=== PATIENT | female | born 1965 | race Caucasian/White ===

== ENCOUNTER 2016-11-19 23:02 | Emergency (ER) | payer MEDICAID ==
[2016-11-19 23:22] VITALS: BMI 31.6
--- NOTE | 2016-11-19 23:22 | ED PDOC ---
Arrival/HPI - General Time Seen by Provider: 11/19/16 23:07 Historian: Patient - History of Present Illness Narrative History of Present Illness (Text): 11/19/16 23:18 Constanza Garcia is a 51 year old female, whose past medical history includes peptic ulcers, breast CA, partial mastectomy, and hypertension, presents to the emergency department complaining of hematemesis associated with abdominal pain since today morning. No relieving or exacerbating factors. Denies fever, chills , headache, dizziness, diarrhea, blood in stool, urinary symptoms or any other complaints at this time. Time/Duration: 24 hours (today morning. ) Symptom Onset: Gradual Symptom Course: Unchanged Severity Level: Mild Activities at Onset: Rest Past Medical History - Provider Review Nursing Documentation Reviewed: Yes - Infectious Disease Hx of Infectious Diseases: None - Cardiac Hx Hypertension: Yes - Pulmonary Hx Respiratory Disorders: Yes Hx Asthma: Yes - Neurological HX Cerebrovascular Accident: Yes - HEENT Hx HEENT Disorder: No - Renal Hx Renal Disorder: No - Endocrine/Metabolic Hx Endocrine Disorders: No - Hematological/Oncological Hx Blood Transfusions: No Hx Blood Transfusion Reaction: No - Integumentary Hx Dermatological Disorder: No - Musculoskeletal/Rheumatological Hx Back Pain: Yes - Gastrointestinal Hx Gastroesophageal Reflux: Yes Hx Gastrointestinal Ulcer: Yes - Genitourinary/Gynecological Hx Genitourinary Disorders: No - Psychiatric Hx Anxiety: Yes Hx Depression: Yes Hx Substance Use: No - Surgical History Hx Breast Biopsy: Yes (r part mastectomy) Hx Section: Yes Hx Hysterectomy: Yes Hx Mastectomy: Yes (patial and lumpectomy) Other/Comment: Gastric ulcers /cyst back of neck, exlap x 15 yrs - Anesthesia Hx Anesthesia Reactions: No Hx Malignant Hyperthermia: No - Suicidal Assessment Feels Threatened In Home Enviroment: No Family/Social History - Physician Review Nursing Documentation Reviewed: Yes Family/Social History: No Known Family HX Smoking Status: Never Smoked Hx Alcohol Use: No Hx Substance Use: No Allergies/Home Meds Allergies/Adverse Reactions: Allergies Penicillins Allergy (Verified 06/17/16 18:28) RASH Home Medications: Home Meds Medication Instructions Recorded Confirmed Anastrozole [Arimidex 1 mg Tab] 1 mg PO DAILY 05/04/15 06/17/16 Review of Systems - Physician Review All systems were reviewed & negative as marked: Yes - Review of Systems Constitutional: Normal. absent: Fatigue, Fevers Respiratory: Normal. absent: SOB, Cough Cardiovascular: Normal. absent: Chest Pain Gastrointestinal: Abdominal Pain, Nausea, Vomiting, Hematemesis. absent: Diarrhea Musculoskeletal: Normal Skin: Normal Neurological: Normal. absent: Headache, Dizziness Psychiatric: Normal Physical Exam Vital Signs Reviewed: Yes Vital Signs Temp Pulse Resp BP Pulse Ox 11/20/16 01:46 73 16 125/82 99 11/19/16 23:24 97.7 F 89 18 135/92 H 97 Temperature: Afebrile Blood Pressure: Normal Pulse: Regular Respiratory Rate: Normal Appearance: Positive for: Well-Appearing, Non-Toxic, Comfortable Pain Distress: None Mental Status: Positive for: Alert and Oriented X 3 - Systems Exam Head: Present: Atraumatic, Normocephalic Pupils: Present: PERRL Extroacular Muscles: Present: EOMI Conjunctiva: Present: Normal Respiratory/Chest: Present: Clear to Auscultation, Good Air Exchange. No: Respiratory Distress, Accessory Muscle Use Cardiovascular: Present: Regular Rate and Rhythm, Normal S1, S2. No: Murmurs Abdomen: Present: Normal Bowel Sounds. No: Tenderness, Distention, Peritoneal Signs Upper Extremity: Present: Normal Inspection. No: Cyanosis, Edema Lower Extremity: Present: Normal Inspection. No: Edema Neurological: Present: GCS=15, CN II-XII Intact, Speech Normal Skin: Present: Warm, Dry, Normal Color. No: Rashes Psychiatric: Present: Alert, Oriented x 3, Normal Insight, Normal Concentration Medical Decision Making ED Course and Treatment: 11/19/16 23:23 Impression: A 51 year old female who presents to the emergency department complaining of hematemesis associated with abdominal pain since today morning. Plan: -- EKG -- Labs, cardiac enzymes -- Chest X-ray -- Dilaudid -- Morphine -- Protonix -- IV fluids -- Zofran -- Urinalysis -- Reassess and disposition Progress Notes: 11/20/16 02:25 The patient is choosing to leave against medical advice. I have personally explained to the patient that choosing to do so may result in permanent bodily harm or . I have discussed at great length that without further evaluation and monitoring there may be unforeseen circumstances and/or deterioration causing permanent bodily harm or as a result of their choice. The patient is alert, oriented, and shows the mental capacity to make clear decisions regarding the patients health care at this time. The patient continues to wish to leave against medical advice. The patient has been advised that they should return to the emergency room immediately if they change their mind at any time, or if their condition begins to change or worsen in any way. - Lab Interpretations Lab Results: 11/19/16 23:55 11/19/16 23:55 Lab Results 11/19/16 23:55: WBC 9.9 D, RBC 5.00, Hgb 14.0, Hct 41.6, MCV 83.2, MCH 28.0, MCHC 33.7, RDW 14.8 H, Plt Count 362, MPV 9.5, Gran % 68.4 H, Lymph % (Auto) 25.6, [place] % (Auto) 4.8, Eos % (Auto) 0.9 L, Baso % (Auto) 0.3, Gran # 6.77 H, Lymph # 2.5, [place] # 0.5, Eos # 0.1, Baso # 0.03, PT 10.7, INR 0.99, APTT 27.3, Sodium 141, Potassium 4.2, Chloride 102, Carbon Dioxide 29, Anion Gap 14, BUN 20 , Creatinine 0.6, Est GFR ( Amer) > 60, Est GFR (Non-Af Amer) > 60, Random Glucose 97, Calcium 9.7, Total Bilirubin 0.5, AST 24, ALT 18, Alkaline Phosphatase 111, Lactate Dehydrogenase 387, Total Creatine Kinase 72, Troponin I < 0.01, Total Protein 7.9, Albumin 4.2, Globulin 3.7, Albumin/Globulin Ratio 1.1, Amylase 100, Lipase 111 - RAD Interpretation Radiology Orders: 11/19/16 23:30 CHEST PORTABLE [RAD] Stat - Medication Orders Current Medication Orders: Discontinued Medications Hydromorphone HCl (Dilaudid) 2 mg IVP STAT STA Stop: 11/20/16 00:28 Last Admin: 11/20/16 00:35 Dose: 2 MG IVP Administration Document 11/20/16 00:35 RD (Rec: 11/20/16 00:35 RD [id number]) Charges for Administration # of IVP Administrations 1 Sodium Chloride (Sodium Chloride 0.9%) 1,000 mls @ 100 mls/hr IV .Q10H STA Stop: 11/20/16 09:29 Last Admin: 11/20/16 00:04 Dose: 100 MLS/HR eMAR Start Stop Document 11/20/16 00:04 RD (Rec: 11/20/16 00:04 RD [id number]) Intravenous Solution Start Date 11/20/16 Start Time 00:04 Morphine Sulfate (Morphine) 2 mg IVP STAT STA Stop: 11/19/16 23:31 Last Admin: 11/20/16 00:03 Dose: 2 MG MAR Pain Assessment Document 11/20/16 00:03 RD (Rec: 11/20/16 00:03 RD [id number]) Pain Reassessment Is this a pain reassessment? No Sleep Is patient sleeping during reassessment? No Presence of Pain Presence of Pain Yes IVP Administration Document 11/20/16 00:03 RD (Rec: 11/20/16 00:03 RD [id number]) Charges for Administration # of IVP Administrations 1 Ondansetron HCl (Zofran Inj) 4 mg IVP STAT STA Stop: 11/19/16 23:31 Last Admin: 11/20/16 00:03 Dose: 4 MG IVP Administration Document 11/20/16 00:03 RD (Rec: 11/20/16 00:03 RD [id number]) Charges for Administration # of IVP Administrations 1 Pantoprazole Sodium (Protonix Inj) 40 mg IVP STAT STA Stop: 11/19/16 23:34 Last Admin: 11/20/16 00:03 Dose: 40 MG IVP Administration Document 11/20/16 00:03 RD (Rec: 11/20/16 00:03 RD [id number]) Charges for Administration # of IVP Administrations 1 - Scribe Statement The provider has reviewed the documentation as recorded by the Billy Pinto Provider Attestation: All medical record entries made by the Grahamiblynn were at my direction and personally dictated by me. I have reviewed the chart and agree that the record accurately reflects my personal performance of the history, physical exam, medical decision making, and the department course for this patient. I have also personally directed, reviewed, and agree with the discharge instructions and disposition. Disposition/Present on Arrival - Present on Arrival Any Indicators Present on Arrival: No History of DVT/PE: No History of Uncontrolled Diabetes: No Urinary Catheter: No History Surgical Site Infection Following: None - Disposition Have Diagnosis and Disposition been Completed?: Yes Diagnosis: GI bleed Disposition: AGAINST MEDICAL ADVICE Disposition Time: 02:25 Condition: GOOD Prescriptions: Pantoprazole Sodium [Protonix] 40 mg PO DAILY #14 ect
[2016-11-19 23:25] VITALS: TEMP 97.7
[2016-11-19] MEDS ORDERED: Morphine 2 mg/ml ISec IVP STA (23:30)
[2016-11-19] MEDS ORDERED: Sodium Chloride 0.9% 1,000 ML IV STA (23:30)
[2016-11-19] MEDS ORDERED: Pantoprazole 40 MG in Sodium Chloride 0.9% 100 ML IV STA (23:30)
[2016-11-20 00:24] LABS: ADD MANUAL DIFF? NO
[2016-11-20] MEDS ORDERED: HYDROmorphone 2 mg/ml ISec IVP STA (00:27)
[2016-11-20 00:39] LABS: INR 0.99 (0.93-1.08); PARTIAL THROMBOPLASTIN TIME 27.3 Seconds (23.7-30.8)
[2016-11-20 00:46] LABS: ALB/GLOB RATIO 1.1 (1.1-1.8); ALKALINE PHOSPHATASE 111 U/L (38-133); ALT/SGPT 18 U/L (7-56); AMYLASE 100 U/L (35-125); AST/SGOT 24 U/L (15-39); BILIRUBIN,TOTAL 0.5 mg/dL (0.2-1.3); BLOOD UREA NITROGEN 20 mg/dL (7-21); CALCIUM 9.7 mg/dL (8.4-10.5); CARBON DIOXIDE 29 mmol/L (21-33); CHLORIDE 102 mmol/L (98-107); GFR AFRICAN-AMERICAN > 60; GLUCOSE,RANDOM 97 mg/dL (70-110); LIPASE 111 U/L (23-300); POTASSIUM 4.2 mmol/L (3.6-5.0); SODIUM 141 mmol/L (132-148); TOTAL PROTEIN 7.9 g/dL (5.8-8.3)
[2016-11-20 01:00] LABS: BASO # 0.03 K/mm3 (0.0-2.0); BASO % 0.3 % (0.0-3.0); EOS # 0.1 (0.0-0.7); EOS % 0.9 % (1.5-5.0); GRAN # 6.77 (1.4-6.5); GRAN % 68.4 % (50.0-68.0); HEMATOCRIT 41.6 % (36.0-48.0); LYMPH # 2.5 (1.2-3.4); LYMPH % 25.6 % (22.0-35.0); MEAN CELL VOLUME 83.2 fL (80.0-105.0); MEAN CORPUSCULAR HGB CONC 33.7 g/dl (31.0-37.0); MEAN PLATELET VOLUME 9.5 fl (7.0-11.0); MONO # 0.5 (0.1-0.6); MONO % 4.8 % (1.0-6.0); PLATELET COUNT 362 10^3/uL (120.0-450.0); RED CELL DISTRIBUTION WIDTH 14.8 % (11.5-14.5); WHITE BLOOD COUNT 9.9 10^3/ul (4.5-11.0)
[2016-11-20 01:09] LABS: TROPONIN I < 0.01 ng/mL
[2016-11-20 01:47] VITALS: BP 125/82; PULSE 73; RESP 16; O2SAT 99
--- NOTE | 2016-11-20 08:39 | RAD ---
HISTORY: abd pain COMPARISON: 06/17/2016 FINDINGS: LUNGS: No active pulmonary disease. PLEURA: No significant pleural effusion identified, no pneumothorax apparent. CARDIOVASCULAR: Normal. OSSEOUS STRUCTURES: No significant abnormalities. VISUALIZED UPPER ABDOMEN: Normal. OTHER FINDINGS: None. IMPRESSION: No active disease.
== END 2016-11-20 02:34 | disposition home or self-care (01) ==
LOC: ED 23:02
DX: K92.2 Gastrointestinal hemorrhage, unspecified (principal); I10 Essential (primary) hypertension
CPT/HCPCS: 71010; 80053; 82150; 82550; 83615; 83690; 84484; 85025; 85610; 85730; 96374; 96375; 99285; C9113; J1170; J2270; J2405; J7040

== ENCOUNTER 2016-11-27 00:13 | Observation (INO) | payer MEDICAID ==
--- NOTE | 2016-11-27 01:08 | ED PDOC ---
Arrival/HPI - General Chief Complaint: GI Problem Time Seen by Provider: 11/27/16 00:58 Historian: Patient - History of Present Illness Narrative History of Present Illness (Text): 11/27/16 01:08 Constanza Garcia is a 51 year old female, with a history of peptic ulcers, breast CA, partial mastectomy and hypertension, presents to the emergency department complaining of epigastric pain associated with 2 episodes of hematemisis for past 2 days. Patient was evaluated for similar symptoms on 11/19/16 when patient signed out against medical advice. Denies any relieving or exacerbating factors. Denies fever, chills, headache, dizziness, chest pain, shortness of breath, nausea, diarrhea, urinary symptoms or any other complaints at this time. Time/Duration: < week (2 days ) Symptom Onset: Gradual Symptom Course: Unchanged Severity Level: Mild Activities at Onset: Light Context: Home Past Medical History - Provider Review Nursing Documentation Reviewed: Yes - Infectious Disease Hx of Infectious Diseases: None - Cardiac Hx Hypertension: Yes - Pulmonary Hx Respiratory Disorders: Yes Hx Asthma: Yes - Neurological HX Cerebrovascular Accident: Yes - HEENT Hx HEENT Disorder: No - Renal Hx Renal Disorder: No - Endocrine/Metabolic Hx Endocrine Disorders: No - Hematological/Oncological Hx Blood Transfusions: No Hx Blood Transfusion Reaction: No - Integumentary Hx Dermatological Disorder: No - Musculoskeletal/Rheumatological Hx Back Pain: Yes - Gastrointestinal Hx Gastroesophageal Reflux: Yes Hx Gastrointestinal Ulcer: Yes - Genitourinary/Gynecological Hx Genitourinary Disorders: No - Psychiatric Hx Anxiety: Yes Hx Depression: Yes Hx Substance Use: No - Surgical History Hx Breast Biopsy: Yes (r part mastectomy) Hx Section: Yes Hx Hysterectomy: Yes Hx Mastectomy: Yes (patial and lumpectomy) Other/Comment: Gastric ulcers /cyst back of neck, exlap x 15 yrs - Anesthesia Hx Anesthesia: Yes Hx Anesthesia Reactions: No Hx Malignant Hyperthermia: No - Suicidal Assessment Feels Threatened In Home Enviroment: No Family/Social History - Physician Review Nursing Documentation Reviewed: Yes Family/Social History: No Known Family HX Smoking Status: Never Smoked Hx Alcohol Use: No Hx Substance Use: No Allergies/Home Meds Allergies/Adverse Reactions: Allergies Penicillins Allergy (Verified 11/27/16 03:41) RASH Home Medications: Home Meds Medication Instructions Recorded Confirmed Anastrozole [Arimidex 1 mg Tab] 1 mg PO DAILY 05/04/15 06/17/16 Review of Systems - Physician Review All systems were reviewed & negative as marked: Yes - Review of Systems Constitutional: Normal. absent: Fatigue, Fevers Respiratory: Normal. absent: SOB, Cough, Sputum Cardiovascular: Normal. absent: Chest Pain Gastrointestinal: Abdominal Pain, Hematemesis. absent: Diarrhea, Nausea Genitourinary Female: Normal Neurological: Normal. absent: Headache, Dizziness Psychiatric: Normal Physical Exam Vital Signs Reviewed: Yes Vital Signs Temp Pulse Resp BP Pulse Ox 11/27/16 03:54 71 18 129/63 98 11/27/16 00:32 98.3 F 77 18 129/89 97 Temperature: Afebrile Blood Pressure: Normal Pulse: Regular Respiratory Rate: Normal Appearance: Positive for: Well-Appearing, Non-Toxic, Comfortable Pain Distress: None Mental Status: Positive for: Alert and Oriented X 3 - Systems Exam Head: Present: Atraumatic, Normocephalic Pupils: Present: PERRL Extroacular Muscles: Present: EOMI Conjunctiva: Present: Normal Respiratory/Chest: Present: Clear to Auscultation, Good Air Exchange. No: Respiratory Distress, Accessory Muscle Use Cardiovascular: Present: Regular Rate and Rhythm, Normal S1, S2. No: Murmurs Abdomen: Present: Normal Bowel Sounds. No: Tenderness, Distention, Peritoneal Signs Upper Extremity: Present: Normal Inspection. No: Cyanosis, Edema Lower Extremity: Present: Normal Inspection. No: Edema Neurological: Present: GCS=15, CN II-XII Intact, Speech Normal Skin: Present: Warm, Dry, Normal Color. No: Rashes Psychiatric: Present: Alert, Oriented x 3, Normal Insight, Normal Concentration Medical Decision Making ED Course and Treatment: 11/27/16 01:15 Impression: A 51 year old female who presents to the emergency department complaining of abdominal pain associated with 2 episodes of hematemesis for 2 days. Plan: -- EKG -- Labs -- Chest X-ray -- Protonix -- IV fluids -- Zofran -- Reassess and disposition Progress Notes: 11/27/16 03:04 Chest X-ray reviewed by me: No acute processes. 11/27/16 03:[address] Watters who is aware and agrees with the plan admit patient to hospital for hematemesis. Accepts patient under hospitalist service. 11/27/16 04:30 EKG interpreted by me: NSR @ 70 bpm. Normal axis. Normal interval. - Lab Interpretations Lab Results: 11/27/16 02:05 11/27/16 02:05 Lab Results 11/27/16 02:05: WBC 8.2, RBC 4.93, Hgb 13.8, Hct 41.0, MCV 83.2, MCH 28.0, MCHC 33.7, RDW 14.8 H, Plt Count 362, MPV 9.7, PT 10.6, INR 0.98, APTT 25.0, Sodium 139, Potassium 5.1 H, Chloride 104, Carbon Dioxide 26, Anion Gap 14, BUN 15, Creatinine 0.5, Est GFR ( Amer) > 60, Est GFR (Non-Af Amer) > 60, Random Glucose 97, Calcium 9.8, Total Bilirubin 0.6, AST 44 H, ALT 31, Alkaline Phosphatase 131, Total Protein 8.1, Albumin 4.1, Globulin 3.9, Albumin/Globulin Ratio 1.1, Lipase 65, Blood Type A POSITIVE, Antibody Screen Negative, BBK History Checked Patient has bt - RAD Interpretation Radiology Orders: 11/27/16 01:08 CHEST PORTABLE [RAD] Stat - Medication Orders Current Medication Orders: Anastrozole (Arimidex 1 Mg Tab) 1 mg PO DAILY MAIA Sodium Chloride (Sodium Chloride 0.9%) 1,000 mls @ 100 mls/hr IV .Q10H MAIA Morphine Sulfate (Morphine) 2 mg IVP Q4H PRN PRN Reason: Pain, severe (8-10) Ondansetron HCl (Zofran Inj) 4 mg IVP Q4H PRN PRN Reason: Nausea/Vomiting Pantoprazole Sodium (Protonix Inj) 40 mg IVP DAILY MAIA Discontinued Medications Sodium Chloride (Sodium Chloride 0.9%) 1,000 mls @ 999 mls/hr IV .Q1H1M STA Stop: 11/27/16 02:09 Last Admin: 11/27/16 03:36 Dose: 999 MLS/HR eMAR Start Stop Document 11/27/16 03:36 TADEO (Rec: 11/27/16 03:36 TADEO [facility] [id number]) Intravenous Solution Start Date 11/27/16 Start Time 02:10 End Date 11/27/16 End time 03:30 Total Infusion Time 80 Morphine Sulfate (Morphine) 2 mg IVP STAT STA Stop: 11/27/16 02:42 Last Admin: 11/27/16 02:54 Dose: 2 MG MAR Pain Assessment Document 11/27/16 02:54 [email or web address] (Rec: 11/27/16 02:55 [id number]) Pain Reassessment Is this a pain reassessment? No Sleep Is patient sleeping during reassessment? No Presence of Pain Presence of Pain Yes Pain Scale Used Pain Scale Used Numeric Location Pain Location Body Site Abdomen Description Description Constant Intensity of Pain at present 8 Pain Behavior Facial Grimacing Aggravating Factors Changing Position Alleviating Factors/Management Position Change Techniques Alleviating Factors Medication IVP Administration Document 11/27/16 02:54 [email or web address] (Rec: 11/27/16 02:[id number]) Charges for Administration # of IVP Administrations 1 Ondansetron HCl (Zofran Inj) 4 mg IVP ONCE ONE Stop: 11/27/16 01:10 Last Admin: 11/27/16 02:08 Dose: 4 MG IVP Administration Document 11/27/16 02:08 [email or web address] (Rec: 11/27/16 02:08 [id number]) Charges for Administration # of IVP Administrations 1 Pantoprazole Sodium (Protonix Inj) 40 mg IVP ONCE STA Stop: 11/27/16 01:10 Last Admin: 11/27/16 02:08 Dose: 40 MG IVP Administration Document 11/27/16 02:08 [email or web address] (Rec: 11/27/16 02:[id number]) Charges for Administration # of IVP Administrations 1 - Scribe Statement The provider has reviewed the documentation as recorded by the iBlly Pinto Provider Attestation: All medical record entries made by the Billy were at my direction and personally dictated by me. I have reviewed the chart and agree that the record accurately reflects my personal performance of the history, physical exam, medical decision making, and the department course for this patient. I have also personally directed, reviewed, and agree with the discharge instructions and disposition. Disposition/Present on Arrival - Present on Arrival Any Indicators Present on Arrival: No History of DVT/PE: No History of Uncontrolled Diabetes: No Urinary Catheter: No History of Decub. Ulcer: No History Surgical Site Infection Following: None - Disposition Have Diagnosis and Disposition been Completed?: Yes Diagnosis: Hematemesis, Epigastric abdominal pain Disposition: HOSPITALIZED Disposition Time: 03:32 Patient Plan: Observation Patient Problems: Current Active Problems Problem Status Diagnosed Epigastric abdominal pain Acute Hematemesis Acute Condition: GOOD
[2016-11-27] MEDS: Sodium Chloride 0.9% 1,000 ML IV STA ×2 (02:08→03:36)
[2016-11-27 02:22] LABS: MEAN CELL VOLUME 83.2 fL (80.0-105.0); MEAN CORPUSCULAR HGB CONC 33.7 g/dl (31.0-37.0); MEAN PLATELET VOLUME 9.7 fl (7.0-11.0); RED CELL DISTRIBUTION WIDTH 14.8 % (11.5-14.5); WHITE BLOOD COUNT 8.2 10^3/ul (4.5-11.0)
[2016-11-27 02:31] LABS: ALB/GLOB RATIO 1.1 (1.1-1.8); ALKALINE PHOSPHATASE 131 U/L (38-133); ALT/SGPT 31 U/L (7-56); AST/SGOT 44 U/L (15-39); BILIRUBIN,TOTAL 0.6 mg/dL (0.2-1.3); BLOOD UREA NITROGEN 15 mg/dL (7-21); CALCIUM 9.8 mg/dL (8.4-10.5); CARBON DIOXIDE 26 mmol/L (21-33); CHLORIDE 104 mmol/L (95-110); GFR AFRICAN-AMERICAN > 60; GLUCOSE,RANDOM 97 mg/dL (70-110); LIPASE 65 U/L (23-300); POTASSIUM 5.1 mmol/L (3.6-5.0); SODIUM 139 mmol/L (132-148); TOTAL PROTEIN 8.1 g/dL (5.8-8.3)
[2016-11-27 02:38] LABS: INR 0.98 (0.93-1.08)
[2016-11-27] MEDS ORDERED: Morphine 2 mg/ml ISec IVP STA (02:41)
--- NOTE | 2016-11-27 04:04 | CP.PCM.HP ---
<Sandy Love - Last Filed: 11/27/16 03:50> History of Present Illness - History of Present Illness History of Present Illness: This is a 51Y F with PMH of peptic ulcer disease, breast cancer s/p lumpectomy/ chemo/radiation came to the ED with abdominal pain x 2 days. She came into the ED 2 days ago for similar pain, but left AMA. She reports having hematemesis x 2 today. The emesis was described as dark in color. She has not thrown up since then. The patient reports having epigastric pain that is worse with food. She says Zofran makes it better. The pain does not radiate. Patient denies CP, SOB, diarrhea, numbness/tingling, vision changes, dysuria or hematuria. PMH: PUD, breast cancer s/p lumpectomy PSH: L breast Lumpectomy, hysterectomy Home meds: Arimidex, Protonix ALL: Penicillin- said she had allergy as a child SH: Lives with son. Denies EtOH, drug or tobacco use FH: Denies PMD: Dr. Osorio Present on Admission - Present on Admission Any Indicators Present on Admission: No Review of Systems - Review of Systems Review of Systems: As per HPI Past Patient History - Infectious Disease Hx of Infectious Diseases: None - Past Social History Smoking Status: Never Smoked - CARDIAC Hx Hypertension: Yes - PULMONARY Hx Respiratory Disorders: Yes Hx Asthma: Yes - NEUROLOGICAL HX Cerebrovascular Accident: Yes - HEENT Hx HEENT Problems: No - RENAL Hx Chronic Kidney Disease: No - ENDOCRINE/METABOLIC Hx Endocrine Disorders: No - HEMATOLOGICAL/ONCOLOGICAL Hx Blood Transfusions: No Hx Blood Transfusion Reaction: No - INTEGUMENTARY Hx Dermatological Problems: No - MUSCULOSKELETAL/RHEUMATOLOGICAL Hx Back Pain: Yes - GASTROINTESTINAL Hx Gastroesophageal Reflux: Yes - GENITOURINARY/GYNECOLOGICAL Hx Genitourinary Disorders: No - PSYCHIATRIC Hx Anxiety: Yes Hx Depression: Yes Hx Substance Use: No - SURGICAL HISTORY Hx Breast Biopsy: Yes (r part mastectomy) Hx Section: Yes Hx Hysterectomy: Yes Hx Mastectomy: Yes (patial and lumpectomy) Other/Comment: Gastric ulcers /cyst back of neck, exlap x 15 yrs - ANESTHESIA Hx Anesthesia: Yes Hx Anesthesia Reactions: No Hx Malignant Hyperthermia: No Meds Allergies/Adverse Reactions: Allergies Allergy/AdvReac Type Severity Reaction Status Date / Time Penicillins Allergy RASH Verified 11/27/16 03:41 Physical Exam - Constitutional Appears: No Acute Distress - Head Exam Head Exam: ATRAUMATIC, NORMAL INSPECTION, NORMOCEPHALIC - Eye Exam Eye Exam: Normal appearance, PERRL Pupil Exam: NORMAL ACCOMODATION, PERRL - ENT Exam ENT Exam: Mucous Membranes Moist - Respiratory Exam Respiratory Exam: Clear to Auscultation Bilateral, NORMAL BREATHING PATTERN. absent: Rales, Rhonchi, Wheezes - Cardiovascular Exam Cardiovascular Exam: REGULAR RHYTHM, +S1, +S2. absent: Gallop, Rubs, Systolic Murmur - GI/Abdominal Exam GI & Abdominal Exam: Normal Bowel Sounds, Soft, Tenderness (epigastric tenderness ). absent: Guarding, Rebound, Rigid Additional comments: midline scar - Extremities Exam Extremities exam: Positive for: normal inspection. Negative for: calf tenderness, pedal edema - Neurological Exam Neurological exam: Alert, CN II-XII Intact, Oriented x3 - Psychiatric Exam Psychiatric exam: Normal Affect, Normal Mood - Skin Skin Exam: Dry, Intact, Normal Color, Warm Results - Vital Signs Recent Vital Signs: Last Vital Signs Temp 98.3 F 11/27/16 00:32 Pulse 77 11/27/16 00:32 Resp 18 11/27/16 00:32 BP 129/89 11/27/16 00:32 Pulse Ox 97 11/27/16 00:32 - Labs Result Diagrams: 11/27/16 02:05 11/27/16 02:05 Assessment & Plan - Assessment and Plan (Free Text) Assessment: This is a 51Y F with PMH of peptic ulcer disease and breast cancer s/p lumpectomy admitted for epigastric pain with nausea and vomiting. Plan: 1. Epigastric pain with hematemesis - DDx: Gastritis r/o cholecystitis - afebrile, no leukocytosis, H/H stable - NPO - NS@100 - Protonix IV, Zofran prn nausea, Morphine prn pain - Abdominal U/S pending 2. Hx of breast cancer - Continue Arimidex GI ppx: Protonix DVT ppx: SCDs Case seen, reviewed and discussed with attending Joe Love PGY1 - Date & Time Date: 11/27/16 Time: 04:10 <Quinn Watters MD - Last Filed: 12/03/16 09:12> Results - Vital Signs Recent Vital Signs: Last Vital Signs Temp 97.9 F 11/28/16 06:00 Pulse 72 11/28/16 06:00 Resp 20 11/28/16 06:00 BP 122/84 11/28/16 06:00 Pulse Ox 96 11/28/16 06:00 - Labs Result Diagrams: 11/28/16 07:00 11/28/16 07:00 Attending/Attestation - Attestation I have personally seen and examined this patient.: Yes I have fully participated in the care of the patient.: Yes I have reviewed all pertinent clinical information: Yes Notes (Text): 12/03/16 09:12
[2016-11-27] MEDS: Sodium Chloride 0.9% 1,000 ML IV SCH (05:03)
[2016-11-27 05:40] VITALS: BMI 34.1
[2016-11-27] MEDS: Morphine 2 mg/ml ISec IVP PRN ×3 (06:27→14:17)
--- NOTE | 2016-11-27 09:24 | RAD ---
HISTORY: Abdominal pain COMPARISON: 11/20/2016 FINDINGS: LUNGS: The lungs are well inflated and clear. PLEURA: No significant pleural effusion identified, no pneumothorax apparent. CARDIOVASCULAR: Normal. OSSEOUS STRUCTURES: No significant abnormalities. VISUALIZED UPPER ABDOMEN: Normal. OTHER FINDINGS: None. IMPRESSION: No active pulmonary disease.
--- NOTE | 2016-11-27 09:33 | CARD ---
APPROVED REPORT EKG Measurement Heart [id number] <Conclusion> Normal sinus rhythm No change except lower voltage QRS in Lead 1
--- NOTE | 2016-11-27 10:45 | US ---
HISTORY: r/o gallstones COMPARISON: None. TECHNIQUE: Sonographic evaluation of the right upper quadrant of the abdomen. FINDINGS: LIVER: Measures 18.1 cm in length. There is diffuse increased echogenicity of the liver parenchyma. No mass. No intrahepatic bile duct dilatation. GALLBLADDER: Unremarkable. No gallstones. COMMON BILE DUCT: Measures 5.8 mm. No stones. No dilatation. PANCREAS: Unremarkable as visualized. No mass. No ductal dilatation. RIGHT KIDNEY: Measures 12.6 cm in length. Normal echogenicity. No calculus, mass, or hydronephrosis. AORTA: No aneurysmal dilatation. IVC: Unremarkable. OTHER FINDINGS: None . IMPRESSION: Mild hepatomegaly and hepatic steatosis. No cholelithiasis or biliary dilatation.
--- NOTE | 2016-11-27 11:50 | CP.PCM.CON ---
<Peggy Douglass - Last Filed: 11/27/16 15:33> History of Present Illness - History of Present Illness History of Present Illness: Gastroenterology Fellow/PGY4 Consult Note 51 year old female with history of breast cancer s/p lumpectomy and chemoradiation, PUD, endorsed to be complicated by perforated viscous leading to Miri fundoplication presenting with abdominal pain and vomiting blood. Patient describes epigastric pain with associated two episodes of coffee ground emesis for the last two days . She notes similar presentation to ER on 11/19 but left AMA. Denies recent antibiotics, recent travel, sick contacts, NSAID use, diarrhea, constipation, melena, hematochezia, or unintentional weight loss. Similar episode last year May presenting with abdominal pain and hematemesis. EGD 06/18/16 with LA Grade C esophagitis, gastritis, and H pylori positive. Patient endorsed compliance to PPI therapy and denies treatment of H pylori. Family-denies esophageal cancer, stomach cancer, colon cancer Social- quit tobacco and alcohol use over 10 years ago, denies illicit drug use [id number] for perforated gastric viscous, left breast lumpectomy, hysterectomy Review of Systems - Review of Systems Review of Systems: A 12-point review of systems negative except for as above Past Patient History - Infectious Disease Hx of Infectious Diseases: None - Past Social History Smoking Status: Never Smoked - CARDIAC Hx Hypertension: Yes - PULMONARY Hx Respiratory Disorders: Yes Hx Asthma: Yes - NEUROLOGICAL HX Cerebrovascular Accident: Yes - HEENT Hx HEENT Problems: No - RENAL Hx Chronic Kidney Disease: No - ENDOCRINE/METABOLIC Hx Endocrine Disorders: No - HEMATOLOGICAL/ONCOLOGICAL Hx Blood Transfusions: No Hx Blood Transfusion Reaction: No - INTEGUMENTARY Hx Dermatological Problems: No - MUSCULOSKELETAL/RHEUMATOLOGICAL Hx Back Pain: Yes - GASTROINTESTINAL Hx Gastroesophageal Reflux: Yes - GENITOURINARY/GYNECOLOGICAL Hx Genitourinary Disorders: No - PSYCHIATRIC Hx Anxiety: Yes Hx Depression: Yes Hx Substance Use: No - SURGICAL HISTORY Hx Breast Biopsy: Yes (r part mastectomy) Hx Section: Yes Hx Hysterectomy: Yes Hx Mastectomy: Yes (patial and lumpectomy) Other/Comment: Gastric ulcers /cyst back of neck, exlap x 15 yrs - ANESTHESIA Hx Anesthesia: Yes Hx Anesthesia Reactions: No Hx Malignant Hyperthermia: No Meds Allergies/Adverse Reactions: Allergies Allergy/AdvReac Type Severity Reaction Status Date / Time Penicillins Allergy RASH Verified 11/27/16 03:41 - Medications Medications: Current Medications Anastrozole (Arimidex 1 Mg Tab) 1 mg PO DAILY [facility] Last Admin: 11/27/16 09:43 Dose: 1 mg Sodium Chloride (Sodium Chloride 0.9%) 1,000 mls @ 100 mls/hr IV .Q10H [facility] Last Admin: 11/27/16 05:03 Dose: 100 mls/hr Morphine Sulfate (Morphine) 2 mg IVP Q4H PRN PRN Reason: Pain, severe (8-10) Last Admin: 11/27/16 10:31 Dose: 2 mg Ondansetron HCl (Zofran Inj) 4 mg IVP Q4H PRN PRN Reason: Nausea/Vomiting Pantoprazole Sodium (Protonix Inj) 40 mg IVP DAILY [facility] Last Admin: 11/27/16 09:46 Dose: 40 mg Physical Exam - Constitutional Appears: Non-toxic, No Acute Distress - Head Exam Head Exam: ATRAUMATIC, NORMOCEPHALIC - Eye Exam Eye Exam: EOMI, PERRL Pupil Exam: PERRL - ENT Exam ENT Exam: Mucous Membranes Moist, Normal Oropharynx - Neck Exam Neck exam: Positive for: Full Rom, Normal Inspection - Respiratory Exam Respiratory Exam: Clear to Auscultation Bilateral. absent: Rales, Rhonchi, Wheezes - Cardiovascular Exam Cardiovascular Exam: RRR, +S1, +S2. absent: Gallop, Rubs - GI/Abdominal Exam GI & Abdominal Exam: Normal Bowel Sounds, Soft, Tenderness. absent: Distended, Firm, Guarding, Organomegaly, Rebound, Rigid Additional comments: epigastric tenderness to palpation - Extremities Exam Extremities exam: Positive for: full ROM. Negative for: pedal edema - Neurological Exam Neurological exam: Alert - Psychiatric Exam Psychiatric exam: Normal Affect, Normal Mood - Skin Skin Exam: Dry, Intact, Normal Color, Warm Results - Vital Signs Recent Vital Signs: Last Vital Signs Temp 98.2 F 11/27/16 06:00 Pulse 70 11/27/16 06:00 Resp 18 11/27/16 06:00 BP 130/85 11/27/16 06:00 Pulse Ox 99 11/27/16 06:00 - Labs Result Diagrams: 11/27/16 02:05 11/27/16 02:05 Assessment & Plan - Assessment and Plan (Free Text) Assessment: 51 year old female with history of breast cancer s/p lumpectomy and chemoradiation, PUD, endorsed to be complicated by perforated viscous leading to Miri fundoplication presenting with epigastric pain and hematemesis. Ultrasound without acute findings. EGD 06/18/16 with LA Grade C esophagitis, gastritis, and H pylori positive. Plan: >continue PPI daily >no signs of active GI blood loss >H/H stable >trial clear liquids, advance as tolerated >provide H pylori treatment on discharge with previous H pylori on EGD 05/2016 >outpatient follow up with GI physician for surveillance of esophagitis and gastritis 4-8 weeks after H pylori treatment >would benefit from follow up with surgeon with history of fundoplication over ten years ago <Moises Mesa - Last Filed: 11/27/16 18:05> Meds - Medications Medications: Current Medications Anastrozole (Arimidex 1 Mg Tab) 1 mg PO DAILY [facility] Last Admin: 11/27/16 09:43 Dose: 1 mg Hydromorphone HCl (Dilaudid) 0.5 mg IVP Q6H PRN PRN Reason: Pain, severe (8-10) Last Admin: 11/27/16 16:13 Dose: 0.5 mg Sodium Chloride (Sodium Chloride 0.9%) 1,000 mls @ 100 mls/hr IV .Q10H [facility] Last Admin: 11/27/16 05:03 Dose: 100 mls/hr Ondansetron HCl (Zofran Inj) 4 mg IVP Q4H PRN PRN Reason: Nausea/Vomiting Pantoprazole Sodium (Protonix Inj) 40 mg IVP DAILY [facility] Last Admin: 11/27/16 09:46 Dose: 40 mg Results - Vital Signs Recent Vital Signs: Last Vital Signs Temp 97.8 F 11/27/16 16:00 Pulse 75 11/27/16 16:00 Resp 19 11/27/16 16:00 BP 120/68 11/27/16 16:00 Pulse Ox 100 11/27/16 16:00 - Labs Result Diagrams: 11/27/16 02:05 11/27/16 02:05 Attending/Attestation - Attestation I have personally seen and examined this patient.: Yes I have fully participated in the care of the patient.: Yes I have reviewed all pertinent clinical information: Yes Notes (Text): 11/27/16 18:03 51 year old female with history of breast cancer s/p lumpectomy, chemoradiation , GERD, h/o miri fundoplication admitted with hematemesis and abdominal pain. 1. Hematemesis 2. H. pylori gastritis 3. Erosive esophagitis Plan: -hematemesis is mild, self limited, with normal hemoglobin and hemodynamics -recommend PPI daily -recommend outpatient therapy for H .pylori on discharge with Amoxicillin 1 g BID, clarithromycin 500 mg bid, and protonix 40 mg po bid x 2 weeks beginngon on discharge -recommend confirmation of h.pylori eradication in 2-3 months -diet as tolerated -will sign off
--- NOTE | 2016-11-27 13:28 | US ---
HISTORY: Leg pain and swelling. Evaluate for DVT PHYSICIAN(S): Juan Diego Hdz MD. TECHNIQUE: Duplex sonography and color-flow Doppler with graded compression were used to evaluate the deep venous systems of both lower extremities. FINDINGS: The visualized deep venous systems of both lower extremities are sonographically normal and compressible. Normal wave forms and augmentation are seen. There is no sonographic evidence for deep venous thrombosis in the visualized segments of both lower extremities. IMPRESSION: No sonographic evidence for deep venous thrombosis in the visualized segments of both lower extremities.
--- NOTE | 2016-11-27 15:59 | CP.PCM.PN ---
<Angy Mendiola - Last Filed: 11/27/16 16:03> Subjective - Date & Time of Evaluation Date of Evaluation: 11/27/16 Time of Evaluation: 07:50 - Subjective Subjective: Pt seen and evaluated at the bedside. Pt denies N/V. C/o diffuse abdominal pain. Reports BM last night. Afebrile. Objective - Vital Signs/Intake and Output Vital Signs (last 24 hours): Temp Pulse Resp BP Pulse Ox 98.2 F 70 18 130/85 99 11/27/16 06:00 11/27/16 06:00 11/27/16 06:00 11/27/16 06:00 11/27/16 06:00 - Medications Medications: Current Medications Anastrozole (Arimidex 1 Mg Tab) 1 mg PO DAILY [facility] Last Admin: 11/27/16 09:43 Dose: 1 mg Hydromorphone HCl (Dilaudid) 0.5 mg IVP Q6H PRN PRN Reason: Pain, severe (8-10) Sodium Chloride (Sodium Chloride 0.9%) 1,000 mls @ 100 mls/hr IV .Q10H [facility] Last Admin: 11/27/16 05:03 Dose: 100 mls/hr Ondansetron HCl (Zofran Inj) 4 mg IVP Q4H PRN PRN Reason: Nausea/Vomiting Pantoprazole Sodium (Protonix Inj) 40 mg IVP DAILY [facility] Last Admin: 11/27/16 09:46 Dose: 40 mg - Labs Labs: PT 10.6 Seconds (9.9-11.8) 11/27/16 02:05 INR 0.98 (0.93-1.08) 11/27/16 02:05 APTT 25.0 Seconds (23.7-30.8) 11/27/16 02:05 - Constitutional Appears: Non-toxic - Head Exam Head Exam: ATRAUMATIC, NORMOCEPHALIC - Eye Exam Eye Exam: EOMI, Normal appearance Pupil Exam: NORMAL ACCOMODATION, PERRL - ENT Exam ENT Exam: Mucous Membranes Moist, Normal Exam - Respiratory Exam Respiratory Exam: Clear to Ausculation Bilateral, NORMAL BREATHING PATTERN - Cardiovascular Exam Cardiovascular Exam: +S1, +S2. absent: Bradycardia - GI/Abdominal Exam GI & Abdominal Exam: Soft, Tenderness - Exam External exam: absent: Ecchymosis, Erythema - Extremities Exam Extremities Exam: Tenderness. absent: Pedal Edema - Neurological Exam Neurological Exam: Alert, Awake - Skin Skin Exam: Intact, Normal Color Assessment and Plan - Assessment and Plan (Free Text) Plan: This is a 51Y F with PMH of peptic ulcer disease and breast cancer s/p lumpectomy admitted for epigastric pain with nausea and vomiting. 1. Epigastric pain with hematemesis - Gastritis - afebrile, no leukocytosis, H/H stable - CLD trial - NS@100 - Protonix IV, Zofran prn nausea, dilaudid prn pain - Abdominal U/S negative for cholecystitis -GI consult Dr. Garrison appreciated, recs for outpt EGD and tx for +h.Pylori upon d/c will be followed 2. Hx of breast cancer - Continue Arimidex 3. B/L LE tenderness B/L duplex without positive findings GI ppx: Protonix DVT ppx: SCDs Case seen, reviewed and discussed with attending Joe Mendiola PGY1 <Alexandria Bucio A - Last Filed: 11/27/16 16:13> Objective - Vital Signs/Intake and Output Vital Signs (last 24 hours): Temp Pulse Resp BP Pulse Ox 98.2 F 70 18 130/85 99 11/27/16 06:00 11/27/16 06:00 11/27/16 06:00 11/27/16 06:00 11/27/16 06:00 - Medications Medications: Current Medications Anastrozole (Arimidex 1 Mg Tab) 1 mg PO DAILY [facility] Last Admin: 11/27/16 09:43 Dose: 1 mg Hydromorphone HCl (Dilaudid) 0.5 mg IVP Q6H PRN PRN Reason: Pain, severe (8-10) Sodium Chloride (Sodium Chloride 0.9%) 1,000 mls @ 100 mls/hr IV .Q10H [facility] Last Admin: 11/27/16 05:03 Dose: 100 mls/hr Ondansetron HCl (Zofran Inj) 4 mg IVP Q4H PRN PRN Reason: Nausea/Vomiting Pantoprazole Sodium (Protonix Inj) 40 mg IVP DAILY [facility] Last Admin: 11/27/16 09:46 Dose: 40 mg - Labs Labs: PT 10.6 Seconds (9.9-11.8) 11/27/16 02:05 INR 0.98 (0.93-1.08) 11/27/16 02:05 APTT 25.0 Seconds (23.7-30.8) 11/27/16 02:05 Attending/Attestation - Attestation I have personally seen and examined this patient.: Yes I have fully participated in the care of the patient.: Yes I have reviewed all pertinent clinical information, including history, physical exam and plan: Yes Notes (Text): 11/27/16 16:08 51 year old female with past medical history of peptic ulcer disease and breast cancer who presented with complaint of epigastric pain with nausea and vomiting. Her last EGD was in 06/03 which showed esophagitis, gastritis and +H pylori. She however did not follow up with GI for repeat EGD nor was on H pylori treatment. US abdomen is negative for any acute findings. H/H is stable. She is currently NPO with iv fluids, analgesics and antiemetics. GI evaluation was appreciated. Will advance to clear liquids as tolerated. Will need H pylori treatment on discharge as well as repeat EGD with GI follow up. She may also need to follow up with her surgeon as she has history of fundoplication in the past. Alexandria Bucio MD Hospitalist.
[2016-11-27] MEDS: HYDROmorphone 0.5 mg/0.5 ml ISec IVP PRN ×2 (16:13→22:22)
[2016-11-28 00:19] VITALS: RESP 20
[2016-11-28] MEDS: Sodium Chloride 0.9% 1,000 ML IV SCH (04:00)
[2016-11-28] MEDS: HYDROmorphone 0.5 mg/0.5 ml ISec IVP PRN ×2 (04:33→10:57)
[2016-11-28 07:41] LABS: ADD MANUAL DIFF? NO
[2016-11-28 07:43] LABS: BASO # 0.04 K/mm3 (0.0-2.0); BASO % 0.5 % (0.0-3.0); EOS # 0.2 (0.0-0.7); EOS % 2.3 % (1.5-5.0); GRAN # 4.23 (1.4-6.5); LYMPH # 2.6 (1.2-3.4); LYMPH % 35.4 % (22.0-35.0); MEAN CELL VOLUME 83.2 fL (80.0-105.0); MEAN CORPUSCULAR HEMOGLOBIN 27.4 pg (25.0-35.0); MEAN CORPUSCULAR HGB CONC 32.9 g/dl (31.0-37.0); MEAN PLATELET VOLUME 9.2 fl (7.0-11.0); MONO # 0.4 (0.1-0.6); MONO % 4.8 % (1.0-6.0); PLATELET COUNT 316 10^3/uL (120.0-450.0); RED CELL DISTRIBUTION WIDTH 14.5 % (11.5-14.5); WHITE BLOOD COUNT 7.4 10^3/ul (4.5-11.0)
[2016-11-28 07:58] LABS: ALB/GLOB RATIO 1.1 (1.1-1.8); ALKALINE PHOSPHATASE 104 U/L (38-133); ALT/SGPT 35 U/L (7-56); AST/SGOT 27 U/L (15-39); BILIRUBIN,TOTAL 0.4 mg/dL (0.2-1.3); BLOOD UREA NITROGEN 12 mg/dL (7-21); CARBON DIOXIDE 25 mmol/L (21-33); CHLORIDE 106 mmol/L (95-110); GFR AFRICAN-AMERICAN > 60; GLUCOSE,RANDOM 91 mg/dL (70-110); POTASSIUM 4.1 mmol/L (3.6-5.0); SODIUM 139 mmol/L (132-148); TOTAL PROTEIN 6.7 g/dL (5.8-8.3)
[2016-11-28 08:08] VITALS: BP 122/84; PULSE 72; TEMP 97.9; O2SAT 96
--- NOTE | 2016-11-28 15:56 | CP.PCM.DIS ---
<Angy Mendiola - Last Filed: 01/02/17 12:06> Provider - Provider Date of Admission: 11/27/16 03:29 Attending physician: Alexandria Bucio MD Primary care physician: unknown Consults: Dr. Garrison Time Spent in preparation of Discharge (in minutes): 35 Hospital Course - Lab Results Lab Results: Most Recent Lab Values WBC 7.4 10^3/ul (4.5-11.0) 11/28/16 07:00 RBC 4.57 10^6/uL (3.5-6.1) 11/28/16 07:00 Hgb 12.5 gm/dL (12.0-16.0) 11/28/16 07:00 Hct 38.0 % (36.0-48.0) 11/28/16 07:00 MCV 83.2 fL (80.0-105.0) 11/28/16 07:00 MCH 27.4 pg (25.0-35.0) 11/28/16 07:00 MCHC 32.9 g/dl (31.0-37.0) 11/28/16 07:00 RDW 14.5 % (11.5-14.5) 11/28/16 07:00 Plt Count 316 10^3/uL (120.0-450.0) 11/28/16 07:00 MPV 9.2 fl (7.0-11.0) 11/28/16 07:00 Gran % 57.0 % (50.0-68.0) 11/28/16 07:00 Lymph % (Auto) 35.4 % (22.0-35.0) H 11/28/16 07:00 Crosby % (Auto) 4.8 % (1.0-6.0) 11/28/16 07:00 Eos % (Auto) 2.3 % (1.5-5.0) 11/28/16 07:00 Baso % (Auto) 0.5 % (0.0-3.0) 11/28/16 07:00 Gran # 4.23 (1.4-6.5) 11/28/16 07:00 Lymph # 2.6 (1.2-3.4) 11/28/16 07:00 Crosby # 0.4 (0.1-0.6) 11/28/16 07:00 Eos # 0.2 (0.0-0.7) 11/28/16 07:00 Baso # 0.04 K/mm3 (0.0-2.0) 11/28/16 07:00 PT 10.6 Seconds (9.9-11.8) 11/27/16 02:05 INR 0.98 (0.93-1.08) 11/27/16 02:05 APTT 25.0 Seconds (23.7-30.8) 11/27/16 02:05 Sodium 139 mmol/L (132-148) 11/28/16 07:00 Potassium 4.1 mmol/L (3.6-5.0) 11/28/16 07:00 Chloride 106 mmol/L (95-110) 11/28/16 07:00 Carbon Dioxide 25 mmol/L (21-33) 11/28/16 07:00 Anion Gap 12 (10-20) 11/28/16 07:00 BUN 12 mg/dL (7-21) 11/28/16 07:00 Creatinine 0.5 mg/dL (0.5-1.4) 11/28/16 07:00 Est GFR ( Amer) > 60 11/28/16 07:00 Est GFR (Non-Af Amer) > 60 11/28/16 07:00 Random Glucose 91 mg/dL (70-110) 11/28/16 07:00 Calcium 9.0 mg/dL (8.4-10.5) 11/28/16 07:00 Total Bilirubin 0.4 mg/dL (0.2-1.3) 11/28/16 07:00 AST 27 U/L (15-39) 11/28/16 07:00 ALT 35 U/L (7-56) 11/28/16 07:00 Alkaline Phosphatase 104 U/L (38-133) 11/28/16 07:00 Total Protein 6.7 g/dL (5.8-8.3) 11/28/16 07:00 Albumin 3.5 g/dL (3.0-4.8) 11/28/16 07:00 Globulin 3.2 gm/dL 11/28/16 07:00 Albumin/Globulin Ratio 1.1 (1.1-1.8) 11/28/16 07:00 Lipase 65 U/L (23-300) 11/27/16 02:05 Blood Type A POSITIVE 11/27/16 02:05 Antibody Screen Negative 11/27/16 02:05 BBK History Checked Patient has bt 11/27/16 02:05 - Hospital Course Hospital Course: 51Y F with PMHx of peptic ulcer disease, breast cancer s/p lumpectomy/chemo/ radiation came to the ED with abdominal pain x 2 days. She came into the ED 2 days ago for similar pain, but left AMA. She reports having hematemesis x 2 during the same day. Last EGD was in 06/03 which showed esophagitis, gastritis and +H pylori. She however did not follow up with GI for repeat EGD, nor was on H pylori treatment. Transferred from ED for observation for dx hematemesis and abdominal pain. US abdomen is negative for any acute findings. H/H is stable. Pt was started NPO with iv fluids, analgesics and antiemetics. GI evaluation was appreciated. Throughout course of admission, advanced diet as tolerated. Pt d/c home in good condition with the following medications instructions: Clarithromycin [Clarithromycin ER] 500 mg PO BID #28 tab.er.24h Docusate Calcium 240 mg PO DAILY #7 capsule Metronidazole [Flagyl] 500 mg PO BID #28 tablet Pantoprazole [Protonix] 40 mg PO BID #28 tab - Follow Up Plan Condition: GOOD Disposition: HOME/ ROUTINE Instructions: Helicobacter Pylori (GEN), Upper Endoscopy (DC), Acute Nausea and Vomiting (DC), Acute Diarrhea (GEN), Acute Abdominal Pain (DC), Acute Abdominal Pain (GEN), Abdominal Pain (ED) Additional Instructions: Pt is discharged to home. Follow-up with Dr. Garrison within 4 to 8 weeks after finishing abx for H. Pylori for outpatient Esophagogastroduodenoscopy, at [facility] [id number], [place] [id number], . Please take the following prescriptions upon discharge: metronidazole 500 mg by mouth twice daily for 14 days, clarithromycin 500 mg by mouth twice daily for 14 days, and protonix 40 mg by mouth twice daily. Perscriptions sent electronically to [facility] pharmacy at [address] [place], [place] [address] as agreed upon with patient today. Please follow up with your primary care physician after discharge. Please return to the emergency department for a worsening of symptoms. Discharge Exam - Head Exam Head Exam: ATRAUMATIC, NORMOCEPHALIC - Eye Exam Eye Exam: EOMI, Normal appearance Pupil Exam: NORMAL ACCOMODATION, PERRL - ENT Exam ENT Exam: Mucous Membranes Moist, Normal Exam - Respiratory Exam Respiratory Exam: NORMAL BREATHING PATTERN, UNREMARKABLE - Cardiovascular Exam Cardiovascular Exam: REGULAR RHYTHM, +S1, +S2 - GI/Abdominal Exam GI & Abdominal Exam: Soft, Tenderness - Extremities Exam Extremities exam: tenderness, pedal pulses present - Neurological Exam Neurological exam: Alert, Oriented x3 - Skin Skin Exam: Normal Color, Warm Discharge Plan - Discharge Medications Prescriptions: Clarithromycin [Clarithromycin ER] 500 mg PO BID #28 tab.er.24h Docusate Calcium 240 mg PO DAILY #7 capsule Metronidazole [Flagyl] 500 mg PO BID #28 tablet Pantoprazole [Protonix] 40 mg PO BID #28 tab - Follow Up Plan Condition: GOOD Disposition: HOME/ ROUTINE Instructions: Helicobacter Pylori (GEN), Upper Endoscopy (DC), Acute Nausea and Vomiting (DC), Acute Diarrhea (GEN), Acute Abdominal Pain (DC), Acute Abdominal Pain (GEN), Abdominal Pain (ED) Additional Instructions: Pt is discharged to home. Follow-up with Dr. Garrison within 4 to 8 weeks after finishing abx for H. Pylori for outpatient Esophagogastroduodenoscopy, at [facility] [address] [address], . Please take the following prescriptions upon discharge: metronidazole 500 mg by mouth twice daily for 14 days, clarithromycin 500 mg by mouth twice daily for 14 days, and protonix 40 mg by mouth twice daily. Perscriptions sent electronically to [facility] pharmacy at [address] [place] [address] as agreed upon with patient today. Please follow up with your primary care physician after discharge. Please return to the emergency department for a worsening of symptoms. Referrals: Rodney Garrison MD [Staff Provider] - <Alexandria Bucio - Last Filed: 01/07/17 13:30> Provider - Provider Date of Admission: 11/27/16 03:29 Attending physician: Alexandria Bucio MD Hospital Course - Lab Results Lab Results: Most Recent Lab Values WBC 7.4 10^3/ul (4.5-11.0) 11/28/16 07:00 RBC 4.57 10^6/uL (3.5-6.1) 11/28/16 07:00 Hgb 12.5 gm/dL (12.0-16.0) 11/28/16 07:00 Hct 38.0 % (36.0-48.0) 11/28/16 07:00 MCV 83.2 fL (80.0-105.0) 11/28/16 07:00 MCH 27.4 pg (25.0-35.0) 11/28/16 07:00 MCHC 32.9 g/dl (31.0-37.0) 11/28/16 07:00 RDW 14.5 % (11.5-14.5) 11/28/16 07:00 Plt Count 316 10^3/uL (120.0-450.0) 11/28/16 07:00 MPV 9.2 fl (7.0-11.0) 11/28/16 07:00 Gran % 57.0 % (50.0-68.0) 11/28/16 07:00 Lymph % (Auto) 35.4 % (22.0-35.0) H 11/28/16 07:00 Crosby % (Auto) 4.8 % (1.0-6.0) 11/28/16 07:00 Eos % (Auto) 2.3 % (1.5-5.0) 11/28/16 07:00 Baso % (Auto) 0.5 % (0.0-3.0) 11/28/16 07:00 Gran # 4.23 (1.4-6.5) 11/28/16 07:00 Lymph # 2.6 (1.2-3.4) 11/28/16 07:00 Crosby # 0.4 (0.1-0.6) 11/28/16 07:00 Eos # 0.2 (0.0-0.7) 11/28/16 07:00 Baso # 0.04 K/mm3 (0.0-2.0) 11/28/16 07:00 PT 10.6 Seconds (9.9-11.8) 11/27/16 02:05 INR 0.98 (0.93-1.08) 11/27/16 02:05 APTT 25.0 Seconds (23.7-30.8) 11/27/16 02:05 Sodium 139 mmol/L (132-148) 11/28/16 07:00 Potassium 4.1 mmol/L (3.6-5.0) 11/28/16 07:00 Chloride 106 mmol/L (95-110) 11/28/16 07:00 Carbon Dioxide 25 mmol/L (21-33) 11/28/16 07:00 Anion Gap 12 (10-20) 11/28/16 07:00 BUN 12 mg/dL (7-21) 11/28/16 07:00 Creatinine 0.5 mg/dL (0.5-1.4) 11/28/16 07:00 Est GFR ( Amer) > 60 11/28/16 07:00 Est GFR (Non-Af Amer) > 60 11/28/16 07:00 Random Glucose 91 mg/dL (70-110) 11/28/16 07:00 Calcium 9.0 mg/dL (8.4-10.5) 11/28/16 07:00 Total Bilirubin 0.4 mg/dL (0.2-1.3) 11/28/16 07:00 AST 27 U/L (15-39) 11/28/16 07:00 ALT 35 U/L (7-56) 11/28/16 07:00 Alkaline Phosphatase 104 U/L (38-133) 11/28/16 07:00 Total Protein 6.7 g/dL (5.8-8.3) 11/28/16 07:00 Albumin 3.5 g/dL (3.0-4.8) 11/28/16 07:00 Globulin 3.2 gm/dL 11/28/16 07:00 Albumin/Globulin Ratio 1.1 (1.1-1.8) 11/28/16 07:00 Lipase 65 U/L (23-300) 11/27/16 02:05 Blood Type A POSITIVE 11/27/16 02:05 Antibody Screen Negative 11/27/16 02:05 BBK History Checked Patient has bt 11/27/16 02:05 Attending/Attestation - Attestation I have personally seen and examined this patient.: Yes I have fully participated in the care of the patient.: Yes I have reviewed all pertinent clinical information, including history, physical exam and plan: Yes Notes (Text): 01/07/17 13:28 51 year old female with past medical history of peptic ulcer disease and breast cancer who presented with complaint of epigastric pain with nausea and vomiting. Her last EGD was in 06/03 which showed esophagitis, gastritis and +H pylori. She however did not follow up with GI for repeat EGD nor was on H pylori treatment. She had an ultrasound of the abdomen which was negative for any acute findings. She was seen and evaluated by GI. Her symptoms improved and her diet was advanced. She is discharged home to follow up with her pmd on H pylori regimen. Follow up with GI. She may also need to follow up with her surgeon as she has history of fundoplication in the past. Alexandria Bucio MD Hospitalist.
== END 2016-11-28 14:30 | disposition home or self-care (01) ==
LOC: ED 00:13 → ERH 03:29 → 3RNO 04:47
PROVIDERS: ADMIT Internal Medicine; ATTEND Internal Medicine
DX: K29.70 Gastritis, unspecified, without bleeding (principal); B96.81 Helicobacter pylori [H. pylori] as the cause of diseases classified elsewhere; K92.0 Hematemesis; R10.13 Epigastric pain; I10 Essential (primary) hypertension; J45.909 Unspecified asthma, uncomplicated; K21.9 Gastro-esophageal reflux disease without esophagitis; K22.10 Ulcer of esophagus without bleeding; Z85.3 Personal history of malignant neoplasm of breast; Z86.73 Personal history of transient ischemic attack (TIA), and cerebral infarction without residual deficits; Z87.11 Personal history of peptic ulcer disease; Z87.891 Personal history of nicotine dependence; Z88.0 Allergy status to penicillin; Z90.710 Acquired absence of both cervix and uterus; Z90.11 Acquired absence of right breast and nipple; F41.9 Anxiety disorder, unspecified; F32.89 Other specified depressive episodes; Z92.21 Personal history of antineoplastic chemotherapy; Z92.3 Personal history of irradiation; Z98.84 Bariatric surgery status; M54.9 Dorsalgia, unspecified
CPT/HCPCS: 36415; 71010; 76705; 80053; 83690; 85025; 85027; 85610; 85730; 86850; 86900; 93005; 93970; 96360; 96361; 96374; 96375; 96376; 99285; C9113; G0378; J1170; J2270; J2405; J7040

== ENCOUNTER 2017-02-10 04:13 | Emergency (ER) | payer MEDICAID ==
[2017-02-10 04:27] VITALS: BMI 31.6
[2017-02-10 04:34] VITALS: BP 139/100; PULSE 82; RESP 15; TEMP 98.6; O2SAT 100
--- NOTE | 2017-02-10 04:38 | ED PDOC ---
Arrival/HPI - General Chief Complaint: Trauma Time Seen by Provider: 02/10/17 04:30 Historian: Patient - History of Present Illness Narrative History of Present Illness (Text): 02/10/17 04:35 Constanza Garcia is a 51 year old female who presents to the Emergency department status post mechanical fall a few hours prior to arrival. Patient reports she was walking in a grocery store when she tripped and fell on to her right side. Patient states she hit her head and complaining of right ankle pain , right freeman pain, and right knee pain. Patient denies any chest pain, shortness of breath, nausea, vomiting, diarrhea, back pain, neck pain, headache , dizziness, or any other complaints. Time/Duration: Other (tonight) Symptom Onset: Gradual Symptom Course: Unchanged Activities at Onset: Rest, Light Context: Home Past Medical History - Provider Review Nursing Documentation Reviewed: Yes - Infectious Disease Hx of Infectious Diseases: None - Cardiac Hx Hypertension: Yes - Pulmonary Hx Respiratory Disorders: Yes Hx Asthma: Yes - Neurological HX Cerebrovascular Accident: Yes - HEENT Hx HEENT Disorder: No - Renal Hx Renal Disorder: No - Endocrine/Metabolic Hx Endocrine Disorders: No - Hematological/Oncological Hx Blood Transfusions: No Hx Blood Transfusion Reaction: No - Integumentary Hx Dermatological Disorder: No - Musculoskeletal/Rheumatological Hx Back Pain: Yes - Gastrointestinal Hx Gastroesophageal Reflux: Yes - Genitourinary/Gynecological Hx Genitourinary Disorders: No - Psychiatric Hx Anxiety: Yes Hx Depression: Yes Hx Substance Use: No - Surgical History Hx Breast Biopsy: Yes (r part mastectomy) Hx Section: Yes Hx Hysterectomy: Yes Hx Mastectomy: Yes (patial and lumpectomy) Other/Comment: Gastric ulcers /cyst back of neck, exlap 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 - Anesthesia Hx Anesthesia: Yes Hx Anesthesia Reactions: No Hx Malignant Hyperthermia: No - Suicidal Assessment Feels Threatened In Home Enviroment: No Family/Social History - Physician Review Nursing Documentation Reviewed: Yes Family/Social History: Unknown Family HX Smoking Status: Never Smoked Hx Alcohol Use: No Hx Substance Use: No Allergies/Home Meds Allergies/Adverse Reactions: Allergies Penicillins Allergy (Verified 02/10/17 04:34) RASH Home Medications: Home Meds Medication Instructions Recorded Confirmed Anastrozole [Arimidex 1 mg Tab] 1 mg PO DAILY 05/04/15 02/10/17 Review of Systems - Physician Review All systems were reviewed & negative as marked: Yes - Review of Systems Constitutional: Normal. absent: Fevers Eyes: Normal ENT: Normal Respiratory: Normal. absent: SOB, Cough Cardiovascular: Normal. absent: Chest Pain Gastrointestinal: Normal. absent: Abdominal Pain, Diarrhea, Nausea, Vomiting Genitourinary Female: Normal Musculoskeletal: Arthralgias (+right knee pain, +right ankle pain), Other (+ right freeman pain). absent: Neck Pain Skin: Normal Neurological: Normal. absent: Headache, Dizziness Endocrine: Normal Hemo/Lymphatic: Normal Psychiatric: Normal Physical Exam Vital Signs Reviewed: Yes Vital Signs Temp Pulse Resp BP Pulse Ox 02/10/17 04:33 98.6 F 82 15 139/100 H 100 Temperature: Afebrile Blood Pressure: Normal Pulse: Regular Respiratory Rate: Normal Appearance: Positive for: Well-Appearing, Non-Toxic, Comfortable Pain Distress: None Mental Status: Positive for: Alert and Oriented X 3 - Systems Exam Head: Present: Atraumatic, Normocephalic Pupils: Present: PERRL Extroacular Muscles: Present: EOMI Conjunctiva: Present: Normal Mouth: Present: Moist Mucous Membranes Neck: Present: Normal Range of Motion Respiratory/Chest: Present: Clear to Auscultation, Good Air Exchange. No: Respiratory Distress, Accessory Muscle Use Cardiovascular: Present: Regular Rate and Rhythm, Normal S1, S2. No: Murmurs Abdomen: Present: Normal Bowel Sounds. No: Tenderness, Distention, Peritoneal Signs Back: Present: Normal Inspection Upper Extremity: Present: Normal Inspection. No: Cyanosis, Edema Lower Extremity: Present: Normal Inspection, NORMAL PULSES, Normal ROM, Neurovascularly Intact, Capillary Refill < 2 s. No: Edema, Cyanosis, Swelling, Erythema, Deformity, Temperature Abnormalties Neurological: Present: GCS=15, CN II-XII Intact, Speech Normal Skin: Present: Warm, Dry, Normal Color. No: Rashes Psychiatric: Present: Alert, Oriented x 3, Normal Insight, Normal Concentration Medical Decision Making ED Course and Treatment: 02/10/17 04:35 Impression: 51 year old female complaining of right freeman, ankle, and knee pain s/p mechanical fall. Differential Diagnosis include but are not limited to: fracture vs. contusion vs. sprain Plan: -- CT Head w/o contrast -- XR Right Ankle -- XR Right Fibula -- XR Right Knee -- Reassess and disposition Prior Visits: Notes and results from previous visits were reviewed. On 11/27/2016, pt was seen in the Emergency department for epigastric pain and hematemesis. Pt was admitted to the hospital for further evaluation. Progress Notes: [facility] reviewed, pt received 90 Oxycodone on 01/23/2017. 02/10/17 05:53 Reviewed radiology, XR Right Ankle shows no evidence of acute fracture. XR Right Fibula shows no evidence of acute fracture. XR Right Knee shows no evidence of acute fracture. Re-evaluation Time: 06:46 Reassessment Condition: Re-examined, Improved - RAD Interpretation Radiology Orders: 02/10/17 04:43 HEAD W/O CONTRAST [CT] Stat TIBIA FIBULA RIGHT [RAD] Stat 02/10/17 04:44 ANKLE RIGHT 3 VIEWS ROUTINE [RAD] Stat KNEE RIGHT 2 VIEWS (AP & LAT) [RAD] Stat [employer]: ED Physician - Medication Orders Current Medication Orders: Discontinued Medications Acetaminophen (Tylenol 325mg Tab) 650 mg PO STAT STA Stop: 02/10/17 04:55 Last Admin: 02/10/17 05:00 Dose: 650 mg - Scribe Statement The provider has reviewed the documentation as recorded by the Scriblynn Davis All medical record entries made by the Grahamiblynn were at my direction and personally dictated by me. I have reviewed the chart and agree that the record accurately reflects my personal performance of the history, physical exam, medical decision making, and the department course for this patient. I have also personally directed, reviewed, and agree with the discharge instructions and disposition. Disposition/Present on Arrival - Present on Arrival Any Indicators Present on Arrival: No History of DVT/PE: No History of Uncontrolled Diabetes: No Urinary Catheter: No History of Decub. Ulcer: No History Surgical Site Infection Following: None - Disposition Have Diagnosis and Disposition been Completed?: Yes Diagnosis: Knee sprain Disposition: HOME/ ROUTINE Disposition Time: 06:46 Condition: GOOD Discharge Instructions (ExitCare): Knee Sprain (ED) Additional Instructions: use knee brace 4 to 5 days
--- NOTE | 2017-02-10 06:40 | CT ---
EXAM: CT Head Without Intravenous Contrast CLINICAL HISTORY: 51 years old, female; Injury or trauma; Fall; Initial encounter; Abrasion; Head, generalized TECHNIQUE: Axial computed tomography images of the head/brain without intravenous contrast. This CT exam was performed using one or more of the following dose reduction techniques: automated exposure control, adjustment of the mA and/or kV according to patient size, and/or use of iterative reconstruction technique. COMPARISON: No relevant prior studies available. FINDINGS: Brain: No intracranial hemorrhage. No mass. No edema. Ventricles: No hydrocephalus. Bones/joints: No acute fracture. Soft tissues: Unremarkable. Sinuses: No acute sinusitis. Mastoid air cells: No mastoid effusion. Orbits: Unremarkable as visualized. IMPRESSION: 1. No intracranial hemorrhage. 2. Incidental/non-acute findings are described above.
--- NOTE | 2017-02-10 08:01 | RAD ---
PROCEDURE: Right Knee Radiographs. HISTORY: fall COMPARISON: None. FINDINGS: BONES: Normal. No fracture. JOINTS: Normal. No osteoarthritis. JOINT EFFUSION: None. OTHER FINDINGS: None. IMPRESSION: Normal radiographs of the right knee.
--- NOTE | 2017-02-10 08:01 | RAD ---
PROCEDURE: Right Ankle Radiographs. HISTORY: fall COMPARISON: None FINDINGS: BONES: Normal. No fracture. JOINTS: Normal. No osteoarthritis. Ankle mortise maintained. Talar dome intact SOFT TISSUES: Normal. OTHER FINDINGS: None. IMPRESSION: Normal right ankle radiographs.
--- NOTE | 2017-02-10 08:02 | RAD ---
PROCEDURE: Radiographs of the right tibia and fibula. HISTORY: fall COMPARISON: None available. TECHNIQUE: Frontal and lateral views obtained. FINDINGS: BONES: No fracture or destructive lesion. JOINT SPACES: Unremarkable. OTHER FINDINGS: None. IMPRESSION: Unremarkable radiographs of the right tibia and fibula.
== END 2017-02-10 06:57 | disposition home or self-care (01) ==
LOC: ED 04:13
DX: S83.91XA Sprain of unspecified site of right knee, initial encounter (principal); W01.0XXA Fall on same level from slipping, tripping and stumbling without subsequent striking against object, initial encounter; Y92.512 Supermarket, store or market as the place of occurrence of the external cause